=== PATIENT | male | born 1980 ===

== ENCOUNTER 2016-09-21 07:24 | Emergency (ER) | payer MEDICAID ==
[2016-09-21 07:31] VITALS: BMI 23.6
[2016-09-21 07:32] VITALS: TEMP 98.6
--- NOTE | 2016-09-21 08:31 | C.PDOC ---
History Of Present Illness 36 y/o male presents to ED with complaints of toothache, L Flank Pain and vomiting for x3 days. Patient states vomiting first started with "black specs but went away". Patient states Hx of Ulcers. Patient reports several month history of headaches which is associated with black outs. Denies blood in stool , fever, numbness, weakness, or any other complaints at this time. Time Seen by Provider: 09/21/16 07:55 Chief Complaint (Nursing): GI Problem History Per: Patient History/Exam Limitations: no limitations Onset/Duration Of Symptoms: Days Current Symptoms Are (Timing): Still Present Associated Symptoms: Vomiting. denies: Fever, Diarrhea Past Medical History Reviewed: Historical Data, Nursing Documentation, Vital Signs Vital Signs: Last Vital Signs Temp 98.6 F 09/21/16 07:31 Pulse 60 09/21/16 11:18 Resp 97 H 09/21/16 11:18 BP 125/81 09/21/16 11:18 Pulse Ox 16 L 09/21/16 11:18 - Medical History PMH: No Chronic Diseases, Gastrointestinal Ulcer Family History: States: No Known Family Hx - Social History Hx Alcohol Use: No Hx Substance Use: No - Immunization History Hx Tetanus Toxoid Vaccination: Yes Hx Influenza Vaccination: No Hx Pneumococcal Vaccination: No Review Of Systems Except As Marked, All Systems Reviewed And Found Negative. ([facility] was [facility] from [facility] on 08/04/16) Constitutional: Negative for: Fever, Chills Cardiovascular: Negative for: Chest Pain Respiratory: Negative for: Shortness of Breath Gastrointestinal: Positive for: Vomiting. Negative for: Hematochezia Neurological: Negative for: Weakness, Numbness Physical Exam - Physical Exam Appears: Non-toxic, No Acute Distress Skin: Normal Color, Warm, No Rash Head: Atraumatic, Normacephalic Eye(s): bilateral: Normal Inspection Oral Mucosa: Moist Teeth: Other (poor dentition) Gingiva: Tender, Abscess (Left lower) Throat: No Erythema, No Exudate Neck: Normal ROM, Supple Chest: Symmetrical, No Tenderness Cardiovascular: Rhythm Regular, No Friction Rub, No Murmur Respiratory: No Rales, No Rhonchi, No Wheezing Gastrointestinal/Abdominal: Soft, No Tenderness, No Guarding, No Rebound Back: Normal Inspection, CVA Tenderness (left sided) Extremity: Normal ROM, No Tenderness, No Swelling Neurological/Psych: Oriented x3, Normal Speech, Normal Cognition, Normal Motor Gait: Steady ED Course And Treatment - Laboratory Results Result Diagrams: 09/21/16 03:47 09/21/16 03:47 O2 Sat by Pulse Oximetry: 97 (on RA) Pulse Ox Interpretation: Normal - CT Scan/US Head CT Other Rad Studies (CT/US): Interpreted By Me CT/US Interpretation: unremarkable Disposition - Disposition Referrals: [facility] [Outside] [facility] [Outside] Disposition: HOME/ ROUTINE Disposition Time: 11:11 Condition: GOOD Additional Instructions: Follow up with the medical doctor/clinic within 1-2 days. Return if worsened. Prescriptions: Amoxicillin 500 mg PO TID #30 tab Famotidine [Pepcid] 20 mg PO BID #20 tab traMADol/Acetaminophen [Ultracet 325 MG-37.5 MG] 1 tab PO Q8 PRN #15 tab PRN Reason: Pain Instructions: Acute Abdominal Pain (ED), Kidney Cyst (ED) - Clinical Impression Clinical Impression: Gastritis, Headache, Dental abscess, Renal cyst - PA / CLIENT RENEWAL SPECIALIST / Resident Statement MD/DO has reviewed & agrees with the documentation as recorded. - Scribe Statement The provider has reviewed the documentation as recorded by the Chinedu Mahmood All medical record entries made by the Leonardiblincoln were at my direction and personally dictated by me. I have reviewed the chart and agree that the record accurately reflects my personal performance of the history, physical exam, medical decision making, and the department course for this patient. I have also personally directed, reviewed, and agree with the discharge instructions and disposition.
[2016-09-21 09:06] LABS: BASO % 0.5 % (0.0-2.0); EOS # 0.2 K/uL (0.0-0.7); EOS % 3.4 % (0.0-4.0); HEMATOCRIT 39.7 % (35.0-51.0); LYMPH # 2.5 K/uL (1.0-4.3); LYMPH % 35.9 % (20.0-40.0); MEAN CELL VOLUME 88.3 fL (80.0-94.0); MEAN CORPUSCULAR HEMOGLOBIN 28.9 pg (27.0-31.0); MEAN CORPUSCULAR HGB CONC 32.8 g/dL (33.0-37.0); MEAN PLATELET VOLUME 10.6 fL (7.2-11.7); MONO # 0.8 K/uL (0.0-0.8); MONO % 10.7 % (0.0-10.0); RED CELL DISTRIBUTION WIDTH 12.7 % (11.5-14.5)
[2016-09-21 09:17] LABS: CHLORIDE 101 mmol/L (98-107); SODIUM 137 mmol/L (132-148)
[2016-09-21 09:18] LABS: POTASSIUM 3.8 mmol/L (3.6-5.2)
[2016-09-21 09:20] LABS: ALB/GLOB RATIO 1.1 (1.0-2.1); ALKALINE PHOSPHATASE 96 U/L (38-126); AST/SGOT 37 U/L (17-59); BILIRUBIN,TOTAL 0.6 mg/dL (0.2-1.3); BLOOD UREA NITROGEN 13 mg/dL (9-20); CARBON DIOXIDE 26 mmol/L (22-30); GFR AFRICAN-AMERICAN > 60; GLUCOSE,RANDOM 135 mg/dL (75-110); TOTAL PROTEIN 6.9 g/dL (6.3-8.3)
[2016-09-21 09:21] LABS: ALT/SGPT 48 U/L (21-72); CALCIUM 8.3 mg/dl (8.6-10.4)
--- NOTE | 2016-09-21 09:58 | RAD ---
PROCEDURE: CHEST RADIOGRAPH, 1 VIEW. Portable study 09:40. HISTORY: epigastric pain COMPARISON: None available. FINDINGS: LUNGS: Clear. PLEURA: No pneumothorax or pleural fluid seen. CARDIOVASCULAR: Normal. OSSEOUS STRUCTURES: No significant abnormalities. VISUALIZED UPPER ABDOMEN: Normal. OTHER FINDINGS: None. IMPRESSION: No active disease.
--- NOTE | 2016-09-21 10:10 | CT ---
PROCEDURE: CT HEAD WITHOUT CONTRAST. HISTORY: headaches,? syncope COMPARISON: None available. TECHNIQUE: Axial computed tomography images were obtained through the head/brain without intravenous contrast. Radiation dose: Total exam DLP = 871 mGy-cm. This CT exam was performed using one or more of the following dose reduction techniques: Automated exposure control, adjustment of the mA and/or kV according to patient size, and/or use of iterative reconstruction technique. FINDINGS: HEMORRHAGE: No intracranial hemorrhage. BRAIN: No mass effect or edema. No atrophy or chronic microvascular ischemic changes. VENTRICLES: Unremarkable. No hydrocephalus. CALVARIUM: Unremarkable. PARANASAL SINUSES: Unremarkable as visualized. No significant inflammatory changes. MASTOID AIR CELLS: Unremarkable as visualized. No inflammatory changes. OTHER FINDINGS: None. IMPRESSION: No acute intracranial abnormality. If focal neurologic deficit persists, consider MRI.
--- NOTE | 2016-09-21 10:26 | CT ---
PROCEDURE: CT Abdomen and Pelvis without Oral or IV contrast. HISTORY: L flank pain, ? stone COMPARISON: None available. TECHNIQUE: Contiguous axial images of the abdomen and pelvis. No oral or IV contrast administered. Coronal and Sagittal reformats generated and reviewed. Radiation dose: Total exam DLP = 470.21 mGy-cm. This CT exam was performed using one or more of the following dose reduction techniques: Automated exposure control, adjustment of the mA and/or kV according to patient size, and/or use of iterative reconstruction technique. FINDINGS: There is limited evaluation of the solid organs without the administration of IV contrast. LOWER THORAX: No visible consolidation, pleural effusion, or pneumothorax. LIVER: Unremarkable unenhanced appearance. GALLBLADDER AND BILE DUCTS: Unremarkable unenhanced appearance. PANCREAS: Unremarkable unenhanced appearance. SPLEEN: Unremarkable unenhanced appearance. ADRENALS: Unremarkable unenhanced appearance. KIDNEYS AND URETERS: Nonobstructing bilateral renal calculi. Right lower pole calcification appears related to hypodense 13 mm lower pole lesion. Faintly visualized 13 mm right upper pole and 11 mm left upper pole renal hypodensities, possibly cysts. No hydronephrosis or obstructing renal calculus. BLADDER: The urinary bladder appears unremarkable. REPRODUCTIVE: Coarse calcifications within the prostate. Prostate size appears within normal limits. APPENDIX: The appendix appears within normal limits of caliber. No secondary signs of acute appendicitis. BOWEL: The stomach is nondistended. Lack of oral contrast limits evaluation for bowel pathology. The bowel loops appear within normal limits of caliber without evidence of intestinal obstruction. Mild to moderate constipation. PERITONEUM: No significant free fluid. No definite free air. LYMPH NODES: No bulky lymphadenopathy identified. VASCULATURE: No aortic aneurysm. BONES: No acute osseous abnormality is detected. OTHER FINDINGS: None. IMPRESSION: Nonobstructing bilateral renal calculi. Right lower pole calcification appears related to hypodense 13 mm lower pole lesion. Faintly visualized 13 mm right upper pole and 11 mm left upper pole renal hypodensities, possibly cysts. No hydronephrosis or obstructing renal calculus. Mild to moderate constipation.
[2016-09-21 11:18] VITALS: BP 125/81; PULSE 60; RESP 97
[2016-09-22 22:27] VITALS: O2SAT 97
== END 2016-09-21 11:31 | disposition home or self-care (01) ==
LOC: C.ER 07:24
DX: K29.70 Gastritis, unspecified, without bleeding (principal); K04.7 Periapical abscess without sinus; R51 Headache; N28.1 Cyst of kidney, acquired
CPT/HCPCS: 70450; 71010; 74176; 80053; 83690; 85025; 96374; 96375; 99285; C9113; J1885; J2405

== ENCOUNTER 2017-01-06 04:32 | Emergency (ER) | payer MEDICAID, OTHER ==
[2017-01-06 04:32] VITALS: BMI 23.6
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
[2017-01-06 05:21] VITALS: RESP 16; TEMP 99.5; O2SAT 98
[2017-01-06 06:41] LABS: BASO # 0.1 K/uL (0.0-0.2); BASO % 0.5 % (0.0-2.0); EOS # 0.1 K/uL (0.0-0.7); HEMATOCRIT 42.5 % (35.0-51.0); LYMPH # 3.5 K/uL (1.0-4.3); LYMPH % 28.9 % (20.0-40.0); MEAN CELL VOLUME 87.9 fL (80.0-94.0); MEAN CORPUSCULAR HGB CONC 32.9 g/dL (33.0-37.0); MEAN PLATELET VOLUME 9.2 fL (7.2-11.7); MONO # 1.2 K/uL (0.0-0.8); MONO % 9.5 % (0.0-10.0); RED CELL DISTRIBUTION WIDTH 12.3 % (11.5-14.5); WHITE BLOOD COUNT 12.2 K/uL (4.8-10.8)
[2017-01-06 06:54] LABS: ALB/GLOB RATIO 1.3 (1.0-2.1); ALCOHOL SERUM < 10 mg/dl (0-10); ALKALINE PHOSPHATASE 93 U/L (38-126); ALT/SGPT 68 U/L (21-72); AST/SGOT 48 U/L (17-59); BILIRUBIN,TOTAL 0.7 mg/dL (0.2-1.3); BLOOD UREA NITROGEN 15 mg/dL (9-20); CALCIUM 9.2 mg/dl (8.6-10.4); CARBON DIOXIDE 25 mmol/L (22-30); CHLORIDE 100 mmol/L (98-107); GFR AFRICAN-AMERICAN > 60; GLUCOSE,RANDOM 75 mg/dL (75-110); SODIUM 140 mmol/L (132-148); TOTAL PROTEIN 7.4 g/dL (6.3-8.3)
[2017-01-06 06:59] LABS: RBC URINE 1 /hpf (0-3); URINE BACTERIA RARE (<OCC); URINE BILIRUBIN NEGATIVE (NEGATIVE); URINE BLOOD NEGATIVE (NEGATIVE); URINE COLOR Yellow (YELLOW); URINE GLUCOSE (UA) NORMAL (Normal); URINE KETONE NEGATIVE (NEGATIVE); URINE LEUKOCYTE ESTERASE NEG Leu/uL (Negative); URINE PROTEIN NEGATIVE (NEGATIVE); WBC URINE 3 /hpf (0-5)
[2017-01-06 08:10] VITALS: BP 108/73; PULSE 71
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
== END 2017-01-06 10:00 | disposition home or self-care (01) ==
LOC: C.ER 04:32
DX: S40.011A Contusion of right shoulder, initial encounter (principal); Y08.89XA Assault by other specified means, initial encounter; F32.9 Major depressive disorder, single episode, unspecified
CPT/HCPCS: 36415; 73030; 80053; 80320; 80324; 80345; 80346; 80349; 80353; 80358; 80361; 81001; 83992; 85025; 96372; 99285; J1885

== ENCOUNTER 2017-11-24 09:49 | Emergency (ER) | payer OTHER ==
[2017-11-24 10:10] VITALS: BMI 23.5
--- NOTE | 2017-11-24 11:27 | C.PDOC ---
History Of Present Illness 37-year-old male, PMhx includes polysubstance abuse, presents to the emergency department, brought in by ambulance for detox from Heroin and alcohol. Patient is requesting ambient to sleep during my evaluation. No other complaints at this time. Time Seen by Provider: 11/24/17 10:22 Chief Complaint (Nursing): Substance Abuse History Per: Patient History/Exam Limitations: no limitations Current Symptoms Are (Timing): Still Present Past Medical History Reviewed: Historical Data, Nursing Documentation, Vital Signs Vital Signs: Last Vital Signs Temp 98.2 F 11/24/17 12:29 Pulse 70 11/24/17 12:29 Resp 12 11/24/17 12:29 BP 110/71 11/24/17 12:29 Pulse Ox 98 11/24/17 13:12 - Medical History PMH: Anxiety, Depression, Gastrointestinal Ulcer, Chronic Kidney Disease Family History: States: No Known Family Hx - Social History Hx Alcohol Use: Yes Hx Substance Use: Yes (heroin) - Immunization History Hx Tetanus Toxoid Vaccination: Yes Hx Influenza Vaccination: No Hx Pneumococcal Vaccination: No Review Of Systems Constitutional: Negative for: Fever, Chills Cardiovascular: Negative for: Chest Pain Respiratory: Negative for: Shortness of Breath Gastrointestinal: Negative for: Vomiting Musculoskeletal: Negative for: Neck Pain, Back Pain Neurological: Negative for: Weakness, Numbness, Headache, Dizziness Physical Exam - Physical Exam Appears: Non-toxic, No Acute Distress, Other (drowsy, arousable) Skin: Warm, Dry, No Rash Head: Atraumatic Eye(s): bilateral: Normal Inspection Nose: Normal Oral Mucosa: Moist Lips: Normal Appearing Neck: Normal ROM Cardiovascular: Rhythm Regular, No Murmur Respiratory: Normal Breath Sounds, No Decreased Breath Sounds, No Accessory Muscle Use Gastrointestinal/Abdominal: Soft, No Tenderness Extremity: Normal ROM, No Deformity, No Swelling Neurological/Psych: Oriented x3, Normal Speech ED Course And Treatment O2 Sat by Pulse Oximetry: 98 (RA) Pulse Ox Interpretation: Normal Disposition Counseled Patient/Family Regarding: Diagnosis - Disposition Disposition: HOME/ ROUTINE Disposition Time: 11:26 Condition: STABLE Forms: [facility] (Slovak) - Clinical Impression Clinical Impression: Insomnia - Scribe Statement The provider has reviewed the documentation as recorded by the Scribe (Nicole Johnson) All medical record entries made by the Scribe were at my direction and personally dictated by me. I have reviewed the chart and agree that the record accurately reflects my personal performance of the history, physical exam, medical decision making, and the department course for this patient. I have also personally directed, reviewed, and agree with the discharge instructions and disposition.
[2017-11-24 12:30] VITALS: BP 110/71; PULSE 70; RESP 12; TEMP 98.2
[2017-11-24 12:53] VITALS: O2SAT 98
== END 2017-11-24 12:40 | disposition home or self-care (01) ==
LOC: C.ER 09:49
DX: G47.00 Insomnia, unspecified (principal)

== ENCOUNTER 2018-05-28 17:14 | Inpatient (IN) | payer MEDICAID, OTHER ==
[2018-05-28 17:36] VITALS: BMI 21.4
[2018-05-28 19:48] LABS: BASO % 0.6 % (0.0-2.0); EOS # 0.2 K/uL (0.0-0.7); EOS % 4.7 % (0.0-4.0); HEMOGLOBIN 12.7 g/dL (12.0-18.0); LYMPH # 1.9 K/uL (1.0-4.3); LYMPH % 43.8 % (20.0-40.0); MEAN CELL VOLUME 87.6 fL (80.0-94.0); MEAN CORPUSCULAR HEMOGLOBIN 28.4 pg (27.0-31.0); MEAN CORPUSCULAR HGB CONC 32.4 g/dL (33.0-37.0); MEAN PLATELET VOLUME 9.8 fL (7.2-11.7); MONO # 0.6 K/uL (0.0-0.8); MONO % 12.6 % (0.0-10.0); NEUT # 1.7 K/uL (1.8-7.0); NEUT % 38.3 % (50.0-75.0); RBC 4.47 Mil/uL (4.40-5.90); RED CELL DISTRIBUTION WIDTH 12.5 % (11.5-14.5); WHITE BLOOD COUNT 4.4 K/uL (4.8-10.8)
[2018-05-28 19:54] LABS: SQUAMOUS EPITHIAL < 1 /hpf (0-5); URINE AMORPHOUS SEDIMENT MODERATE /ul (<OCC); URINE BILIRUBIN NEGATIVE (NEGATIVE); URINE BLOOD NEGATIVE (NEGATIVE); URINE CLARITY Hazy (Clear); URINE COLOR Yellow (YELLOW); URINE GLUCOSE (UA) NORMAL (Normal); URINE LEUKOCYTE ESTERASE NEG Leu/uL (Negative); URINE PROTEIN 1+ mg/dL (NEGATIVE)
[2018-05-28 20:09] LABS: ALB/GLOB RATIO 1.4 (1.0-2.1); ALBUMIN 4.4 g/dL (3.5-5.0); ALT/SGPT 44 U/L (21-72); AST/SGOT 65 U/L (17-59); BLOOD UREA NITROGEN 14 mg/dL (9-20); CALCIUM 9.2 mg/dl (8.6-10.4); GFR NON-AFRICAN AMERICAN > 60
[2018-05-28 20:25] LABS: BARBITURATES, UR NEGATIVE (NEGATIVE); BENZODIAZEPINES, UR NEGATIVE (NEGATIVE); PHENCYCLIDINE, UR NEGATIVE (NEGATIVE)
[2018-05-28 20:33] LABS: OPIATES, UR POSITIVE (NEGATIVE)
--- NOTE | 2018-05-28 21:03 | C.PDOC ---
History Of Present Illness 37 year old male presents to the ED requesting detoxification from heroin and cocaine. Reports he snorts 5 bags of heroin and 5 vials of cocaine daily. Denies any SI/HI, auditory or visual hallucinations, shortness of breath, chest pain, or any other symptoms. Time Seen by Provider: 05/28/18 18:27 Chief Complaint (Nursing): Psychiatric Evaluation History Per: Patient History/Exam Limitations: no limitations Onset/Duration Of Symptoms: Days Current Symptoms Are (Timing): Gone Suicide/Self Injury Attempted (Context): None Modifying Factor(s): Cocaine, Other (Heroin) Associated Symptoms: denies: Suicidal Thoughts, Suicidal Plan Past Medical History Reviewed: Historical Data, Nursing Documentation, Vital Signs Vital Signs: Last Vital Signs Temp 98.4 F 05/28/18 19:15 Pulse 72 05/28/18 19:15 Resp 18 05/28/18 19:15 BP 125/79 05/28/18 19:15 Pulse Ox 99 05/28/18 19:15 - Medical History PMH: Anxiety, Depression, Gastrointestinal Ulcer, Personality Disorder, Post Traumatic Stress Disorder, Chronic Kidney Disease Denies: Diabetes (Patient denied.), Hepatitis (Patient denied.), HIV (Patient denied.), HTN (Patient denied.), Seizures (Patient denied.), Sexually Transmitted Disease (Patient denied.) Other Surgeries: Hx of surgeries Family History: States: No Known Family Hx - Social History Hx Alcohol Use: Yes Hx Substance Use: Yes (heroin) - Immunization History Hx Tetanus Toxoid Vaccination: Yes Hx Influenza Vaccination: Yes Hx Pneumococcal Vaccination: No Review Of Systems Except As Marked, All Systems Reviewed And Found Negative. Cardiovascular: Negative for: Chest Pain Respiratory: Negative for: Shortness of Breath Psych: Positive for: Other (auditory or visual hallucinations). Negative for: Suicidal ideation Physical Exam - Physical Exam Appears: Non-toxic, No Acute Distress Skin: Warm, Dry, No Rash Head: Normacephalic Eye(s): bilateral: Normal Inspection, PERRL, EOMI Nose: Normal Oral Mucosa: Moist Neck: Supple Chest: Symmetrical Cardiovascular: Rhythm Regular Respiratory: Normal Breath Sounds, No Rales, No Rhonchi, No Wheezing Neurological/Psych: Oriented x3, Normal Speech Gait: Steady ED Course And Treatment - Laboratory Results Result Diagrams: 05/28/18 19:41 05/28/18 19:41 Lab Results: Total Bilirubin 0.5 mg/dL (0.2-1.3) 05/28/18 19:41 AST 65 U/L (17-59) H D 05/28/18 19:41 ALT 44 U/L (21-72) 05/28/18 19:41 Alkaline Phosphatase 137 U/L (38-126) H D 05/28/18 19:41 Total Protein 7.5 g/dL (6.3-8.3) 05/28/18 19:41 Albumin 4.4 g/dL (3.5-5.0) 05/28/18 19:41 Globulin 3.1 gm/dL (2.2-3.9) 05/28/18 19:41 Albumin/Globulin Ratio 1.4 (1.0-2.1) 05/28/18 19:41 Urine Color Yellow (YELLOW) 05/28/18 19:41 Urine Clarity Hazy (Clear) 05/28/18 19:41 Urine pH 7.0 (5.0-8.0) 05/28/18 19:41 Ur Specific Brinkley 1.023 (1.003-1.030) 05/28/18 19:41 Urine Protein 1+ mg/dL (NEGATIVE) H 05/28/18 19:41 Urine Glucose (UA) Normal mg/dL (Normal) 05/28/18 19:41 Urine Ketones Negative mg/dL (NEGATIVE) 05/28/18 19:41 Urine Blood Negative (NEGATIVE) 05/28/18 19:41 Urine Nitrate Negative (NEGATIVE) 05/28/18 19:41 Urine Bilirubin Negative (NEGATIVE) 05/28/18 19:41 Urine Urobilinogen 4.0 mg/dL (0.2-1.0) 05/28/18 19:41 Ur Leukocyte Esterase Neg Kosta/uL (Negative) 05/28/18 19:41 Urine WBC (Auto) 5 /hpf (0-5) 05/28/18 19:41 Urine RBC (Auto) 1 /hpf (0-3) 05/28/18 19:41 Ur Squamous Epith Cells < 1 /hpf (0-5) 05/28/18 19:41 Amorphous Sediment Moderate /ul (<OCC) H 05/28/18 19:41 Lab Interpretation: Abnormal (tox + cocaine, opiates, THC) O2 Sat by Pulse Oximetry: 99 (RA) Pulse Ox Interpretation: Normal Reevaluation Time: 21:03 Reassessment Condition: Unchanged - Physician Consult Information Outcome Of Conversation: 2100: d/w Crisis, ok to detox Medical Decision Making Medical Decision Making: Plan - Bloodwork - UA - Admit Disposition Doctor Will See Patient In The: Hospital Counseled Patient/Family Regarding: Studies Performed, Diagnosis - Disposition Disposition: HOSPITALIZED Disposition Time: 21:04 Condition: GOOD - Clinical Impression Clinical Impression: Polysubstance (including opioids) dependence with physiol dependence - Scribe Statement The provider has reviewed the documentation as recorded by the Scribe Loreto Jamison All medical record entries made by the Scribe were at my direction and personally dictated by me. I have reviewed the chart and agree that the record accurately reflects my personal performance of the history, physical exam, medical decision making, and the department course for this patient. I have also personally directed, reviewed, and agree with the discharge instructions and disposition.
--- NOTE | 2018-05-28 22:08 | PCM.BM ---
<ManavEdna - Last Filed: 05/28/18 22:07> Treatment Plan Problems - Problems identified on initial assessmt Denial Date Initiated: 05/28/18 Time Initiated: 22:07 Assessment reference: NA Status: Active Defensive Coping Date Initiated: 05/28/18 Time Initiated: 22:07 Assessment reference: NA Status: Active Low Motivation to Change Date Initiated: 05/28/18 Time Initiated: 22:08 Assessment reference: NA Status: Active Treatment assets and liabiliti Patient Assests: cooperative, ADL independent, negotiates basic needs, cognitively intact Patient Liabilities: substance abuse (cocaine, opiates, THC, ETOH) - Milieu Protocol Maintain good personal hygiene: daily Encourage regular showers, daily Remind patient to perform daily oral care, daily Assist patient to perform ADL's Conduct patient checks and document Observation sheet: Q15 minutes Maintain personal safety: every shift Educate patient to report safety concerns to staff, every shift Monitor environment for contraband/sharps Medication safety: Monitor for expected outcome, potential side effects: every shift, Assess barriers to learning: every shift, Assess readiness for medication education: every shift <Shanelle Haynes - Last Filed: 05/29/18 14:00> - Diagnosis (1) Opioid use disorder, severe, dependence Status: Acute Interventions: 05/29/18 14:00 * Assess 7x/week regarding severity of withdrawal * Educate regarding risks, benefits, side effects and alternatives of medications * Use Motivational Interviewing for abstinence * Use CBT for relapse prevention * Medication management for withdrawal symptoms * Encourage medication assisted treatment * <Janie Dillon - Last Filed: 06/01/18 13:11> Family Contact Family involvement: No known Family/SO - Goals for Treatment Patient goals for treatment: Complete detox and apply for long-term adult rehab program. Discharge/Continuing Care - Education Needs Education Needs: Patient Medication, Patient Diagnosis/Disease Process, Patient Coping Skills, Patient Anger Management skills, Patient Placement options, Patient Community resources - Discharge Discharge Criteria: Ability to care for self, No longer exhibiting s/s of withdrawal, Reduction of target symptoms Discharge to:: Substance Abuse Rehab - Treatment Team Participation Patient/Family/SO Statement: 06/01/18 13:11 "I wanna try to get into the [employer]." Discussed with Family/SO: No Was Patient/Family/SO present at Treatment Team Meeting: Yes
[2018-05-28] MEDS ORDERED: Aluminum Hydroxide/Magnesium Hydroxide Susp (30 mL) PO PRN (22:32)
--- NOTE | 2018-05-29 09:34 | PCM.PSYCH ---
Initial Psychiatric Evaluation - Initial Psychiatric Evaluation Type of Admission: Voluntary Legal Status: Capacity Chief Complaint (in patient's own words): "i just want to be clean" History of Present Illness and Precipitating Events: Patient is a 37 -year-old, male who is single, unemployed and on SSIs, and currently living with his mother in [place]. Patient originally lives in [place] with his sister. He has no children. He presents for heroin detox. Patient states that he was dropped off by a friend and decided to come to detox on his own volition because he wanted to be clean. He admits to using 5 bags of heroin, intranasally, daily. He has been using heroin since he was 25 years old with his longest sobriety being 2 years, from [id number], but relapsed after the of his father. Patient does not have a history of any ODs. Patient also reports snorting 5 bags of cocaine, daily. He has been using cocaine on and off for about 10 years. Patient reports drinking alcohol socially and denies having a history of DTs, seizures, or blackouts. This is his 2nd time in detox with a visit to [facility] detox 10 years ago. Patient denies ever going to rehab. He states that he has tried both methadone and suboxone from the street to quit and prefers methadone. Patient states that he is currently nauseous and very tired. Patient denies any suicidal or homicidal ideation, hallucinations, and paranoia. Past Psychiatric History: Depression, Anxiety, Bipolar. Inpatient psych [facility] stays 5 years ago for severe depression and anxiety Family Psych History: Substance abuse in family- mother: cocaine, sister- ETOH PMHx: Hep. C (as per chart) PSHx: ORIF for left ankle fracture Meds: Seroquel 300mg (patient is complaint) Allergies: trazodone Current Medications: Active Medications Generic Name Dose Route Start Last Admin Trade Name Freq PRN Reason Stop Dose Admin Al Hydrox/Mg Hydrox/Simethicone 30 ml 05/28/18 22:32 Maalox 30 Ml PO TID PRN Indigestion / Heartburn Clonidine HCl 0.1 mg 05/28/18 22:31 Catapres PO Q4 PRN COWS Score More or Equal to 5 Dicyclomine HCl 10 mg 05/28/18 22:32 Bentyl PO Q6 PRN Muscle spasm Gabapentin 400 mg 05/29/18 10:00 Neurontin PO TID NAYELI Hydroxyzine HCl 25 mg 05/28/18 21:51 05/28/18 21:57 Atarax PO 25 mg Q6 PRN Administration Insomnia Ibuprofen 600 mg 05/28/18 22:32 Motrin Tab PO Q6 PRN Pain, moderate (4-7) Loperamide HCl 2 mg 05/28/18 22:46 Imodium PO Q8 PRN Diarrhea Methadone HCl 15 mg 05/29/18 10:00 Methadone PO 06/01/18 09:59 Q24H NAYELI Taper Ondansetron HCl 4 mg 05/28/18 22:32 Zofran Tab PO Q8 PRN Nausea/Vomiting Past Psychiatric History - Past Psychiatric History Previous Treatment History: Intensive Outpatient Pertinent Medical Hx (Current Medical&Sleep Prob, Allergies): Allergies Allergy/AdvReac Type Severity Reaction Status Date / Time shellfish derived Allergy RASH Verified 05/28/18 17:36 trazodone Allergy Verified 05/28/18 17:36 Gabapentin 400 PO BID 05/28/18 Melatonin 05/28/18 Protonix 40 PO DAILY 05/28/18 Review of Systems - Psychiatric Psychiatric: Abnormal Sleep Pattern, Anhedonia, Anxiety, Behavioral Changes, Change in Appetite, Depression, Difficulty Concentrating, Irritability. absent: Hallucinations, Homicidal Ideation, Paranoia, Suicidal Ideation, Visual Hallucinations Mental Status Examination - Personal Presentation Personal Presentation: Looks stated age - Affect Affect: Broad - Motor Activity Motor Activity: Calm - Reliability in Providing Information Reliability in Providing Information: Good - Speech Speech: Disorganized - Mood Mood: Depressed, Anxious - Formal Thought Process Formal Thought Process: No Impairment - Obsessions/Compulsions Obsessions: No Compulsions: No - Cognitive Functions Orientation: Person, Place, Situation, Time Sensorium: Alert Attention/Concentration: Attentive Abstract Thinking: Marana Estimate of Intelligence: Average Judgement: Intact, as evidence by: Insight regarding need for hospitalization Memory: Recent intact, as evidence by: Ability to recall events of the day, Remote intact, as evidenced by: Abilit to recall sig. life events - Risk Risk: Withdrawal - Strength & Assets Inventory Strength & Assets Inventory: Family support, Cooperative - Limitations Limitations: Other DSM 5 DX - DSM 5 DSM 5 Diagnosis: Opioid withdrawal Opioid use disorder- severe Cocaine use disorder- severe MDD - chronic, severe SHERYL- severe - Recommended/Plan of Treatment Treatment Recommendations and Plan of Treatment: Taper with methadone Gabapentin for augmentation if needed Remeron for insomnia and depressive symptoms As needed medications All risks, benefits and alternatives of the meds discussed, and the pt agreed and understood. Attend groups and activities Supportive therapy and psychoeducation [place] for abstinence CBT for relapse prevention Encourage MAT Refer to rehab or IOP, and self-help groups Teach healthy lifestyle methods, i.e. diet, exercise, meditation Smoking cessation with [place] Nicotine patch if needed 34 min Projected ELOS: 4-5 days Prognosis: good with treatment
--- NOTE | 2018-05-30 11:34 | PCM.PYCHPN ---
Psychiatric Progress Note - Psychiatric Progress Note Patient seen today, length of contact: 17 min Patient Chief Complaint: "I'm nauseas" Problems Identified/Issues Discussed: The pt is seen, chart reviewed, case discussed with staff. The pt is compliant with medications and reports no side-effects. Symptoms are improving but needs more time to stabilize. Pt attends groups and activities. Support given, psycho-education provided. After care discussed. Medication Change: Yes (detox changes daily) Medical Record Reviewed: Yes Mental Status Examination - Cognitive Function Orientation: Person, Place, Situation, Time Memory: Intact Attention: Poor Concentration: Poor Association: WNL Fund of Knowledge: WNL - Mood Mood: Depressed, Anxious - Affect Affect: Broad - Speech Speech: Appropriate - Formal Thought Process Formal Thought Process: No Impairment - Suicidal Ideation Suicidal Ideation: No - Homicidal Ideation Homicidal Ideation: No Goal/Treatment Plan - Goal/Treatment Plan Need for Continued Stay: Discharge may exacerbated symptoms, Severe functional impairment Progress Toward Problem(s) and Goals/Treatment Plan: Taper with methadone Gabapentin for augmentation if needed Remeron for insomnia and depressive symptoms As needed medications All risks, benefits and alternatives of the meds discussed, and the pt agreed and understood. Attend groups and activities Supportive therapy and psychoeducation [place] for abstinence CBT for relapse prevention Encourage MAT Refer to rehab or IOP, and self-help groups Teach healthy lifestyle methods, i.e. diet, exercise, meditation Smoking cessation with [place] Nicotine patch if needed
--- NOTE | 2018-05-31 15:41 | PCM.PYCHPN ---
Psychiatric Progress Note - Psychiatric Progress Note Patient seen today, length of contact: 16 min Patient Chief Complaint: "I'm so so" Problems Identified/Issues Discussed: The pt is seen, chart reviewed, case discussed with staff. Support and psychoeducation given, CBT and [place] used briefly No new symptoms reported, improving slowly and needs more time No SEs from medications, risks discussed. After care discussed Medication Change: Yes (detox changes daily) Medical Record Reviewed: Yes Mental Status Examination - Cognitive Function Orientation: Person, Place, Situation, Time Memory: Intact Attention: Poor Concentration: Poor Association: WNL Fund of Knowledge: WNL - Mood Mood: Depressed, Anxious - Affect Affect: Broad - Speech Speech: Appropriate - Formal Thought Process Formal Thought Process: No Impairment - Suicidal Ideation Suicidal Ideation: No - Homicidal Ideation Homicidal Ideation: No Goal/Treatment Plan - Goal/Treatment Plan Need for Continued Stay: Discharge may exacerbated symptoms, Severe functional impairment Progress Toward Problem(s) and Goals/Treatment Plan: Taper with methadone Gabapentin for augmentation if needed Remeron for insomnia and depressive symptoms As needed medications All risks, benefits and alternatives of the meds discussed, and the pt agreed and understood. Attend groups and activities Supportive therapy and psychoeducation [place] for abstinence CBT for relapse prevention Encourage MAT Refer to rehab or IOP, and self-help groups Teach healthy lifestyle methods, i.e. diet, exercise, meditation Smoking cessation with [place] Nicotine patch if needed Estimated Date of D/C: 06/02/18
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
--- NOTE | 2018-06-01 16:33 | RAD ---
Date of service: 06/01/2018 HISTORY: rehab placement COMPARISON: Portable chest 09/21/2016. TECHNIQUE: Chest PA and lateral FINDINGS: LUNGS: No active pulmonary disease. PLEURA: No significant pleural effusion identified. No pneumothorax apparent. CARDIOVASCULAR: No aortic atherosclerotic calcification present. Normal cardiac size. No pulmonary vascular congestion. OSSEOUS STRUCTURES: No significant abnormalities. VISUALIZED UPPER ABDOMEN: Normal. OTHER FINDINGS: None. IMPRESSION: No interval acute cardiopulmonary disease appreciated.
--- NOTE | 2018-06-02 12:03 | PCM.PYCHPN ---
Psychiatric Progress Note - Psychiatric Progress Note Patient seen today, length of contact: 15 min Patient Chief Complaint: "I'm so so" Problems Identified/Issues Discussed: The pt is seen again, chart reviewed, and case is discussed with the team. The pt denies any side-effects from meds. Attends activities and groups, brief individual therapy provided Not ready for discharge due to ongoing symptoms and high relapse risk. After care discussed again. Now, he wants to go to a rehab. Medication Change: Yes (detox changes daily) Medical Record Reviewed: Yes Mental Status Examination - Cognitive Function Orientation: Person, Place, Situation, Time Memory: Intact Attention: Poor Concentration: Poor Association: WNL Fund of Knowledge: WNL - Mood Mood: Depressed, Anxious - Affect Affect: Broad - Speech Speech: Appropriate - Formal Thought Process Formal Thought Process: No Impairment - Suicidal Ideation Suicidal Ideation: No - Homicidal Ideation Homicidal Ideation: No Goal/Treatment Plan - Goal/Treatment Plan Need for Continued Stay: Discharge may exacerbated symptoms, Severe functional impairment Progress Toward Problem(s) and Goals/Treatment Plan: Taper with methadone Gabapentin for augmentation if needed Remeron for insomnia and depressive symptoms As needed medications All risks, benefits and alternatives of the meds discussed, and the pt agreed and understood. Attend groups and activities Supportive therapy and psychoeducation [place] for abstinence CBT for relapse prevention Encourage MAT Refer to rehab or IOP, and self-help groups Teach healthy lifestyle methods, i.e. diet, exercise, meditation Smoking cessation with [place] Nicotine patch if needed Estimated Date of D/C: 06/03/18
[2018-06-03 09:13] VITALS: BP 103/66; PULSE 71; RESP 18; TEMP 97.6; O2SAT 98
--- NOTE | 2018-06-03 09:16 | PCM.PYCHDC ---
Mental Status Examination - Mental Status Examination Orientation: Person Discharge Summary - Discharge Note Consultations:: List each consultation separately and include: 1. Reason for request. 2. Findings. 3. Follow-up Summary of Hospital Course include:: 1. Description of specific treatment plan utilized for patients during their course of treatmen. 2. Summarize the time- course for resolution of acute symptoms and/or regressed behaviors. 3. Describe issues identified and worked on during hospitalization. 4. Describe medication utilized. 5. Describe medical problems identified and treated. 6. Reassessment of suicide risk Summary of Hospital Course: Patient is a 37 -year-old, male who is single, unemployed and on SSIs, and currently living with his mother in [place]. Patient originally lives in [place] with his sister. He has no children. He presents for heroin detox. Patient states that he was dropped off by a friend and decided to come to detox on his own volition because he wanted to be clean. He admits to using 5 bags of heroin, intranasally, daily. He has been using heroin since he was 25 years old with his longest sobriety being 2 years, from [id number], but relapsed after the of his father. Patient does not have a history of any ODs. Patient also reports snorting 5 bags of cocaine, daily. He has been using cocaine on and off for about 10 years. Patient reports drinking alcohol socially and denies having a history of DTs, seizures, or blackouts. This is his 2nd time in detox with a visit to [facility] detox 10 years ago. Patient denies ever going to rehab. He states that he has tried both methadone and suboxone from the street to quit and prefers methadone. Patient states that he is currently nauseous and very tired. Patient denies any suicidal or homicidal ideation, hallucinations, and paranoia. Past Psychiatric History: Depression, Anxiety, Bipolar. Inpatient psych [facility] stays 5 years ago for severe depression and anxiety Family Psych History: Substance abuse in family- mother: cocaine, sister- ETOH PMHx: Hep. C (as per chart) PSHx: ORIF for left ankle fracture Meds: Seroquel 300mg (patient is complaint) Allergies: trazodone He now wants to go to [facility] but he needs to stay outside 2 days. He will stay with his uncle. He was kept one extra day already, b/c of ongoing sxs and depression. - Diagnosis (1) Opioid use disorder, severe, dependence Current Visit: Yes Status: Acute - Final Diagnosis (DSM 5) Condition upon Discharge: GOOD Disposition: HOME/ ROUTINE Follow-up Treatment Plan: Taper with methadone Gabapentin for augmentation if needed Remeron for insomnia and depressive symptoms As needed medications All risks, benefits and alternatives of the meds discussed, and the pt agreed and understood. Attend groups and activities Supportive therapy and psychoeducation [place] for abstinence CBT for relapse prevention Encourage MAT Refer to rehab or IOP, and self-help groups Teach healthy lifestyle methods, i.e. diet, exercise, meditation Smoking cessation with [place] Nicotine patch if needed Prescriptions/Medication Reconciliation: Escitalopram [Lexapro] 10 mg PO DAILY #30 tab Gabapentin [Neurontin] 400 mg PO BID #60 cap Mirtazapine [Remeron] 15 mg PO HS #30 tab QUEtiapine [Seroquel] 100 mg PO HS PRN #30 tab PRN Reason: Insomnia
== END 2018-06-03 10:15 | disposition home or self-care (01) | DRG 773 ==
LOC: C.ER 17:14 → C.7D 21:04
PROC: GZ56ZZZ Individual Psychotherapy, Supportive (ICD-10-PCS; principal; 2018-05-28)
DX: F11.23 Opioid dependence with withdrawal (principal); F31.9 Bipolar disorder, unspecified; F14.10 Cocaine abuse, uncomplicated; G47.00 Insomnia, unspecified; F60.9 Personality disorder, unspecified; N18.9 Chronic kidney disease, unspecified; F43.10 Post-traumatic stress disorder, unspecified

== ENCOUNTER 2018-07-05 11:42 | Inpatient (IN) | payer OTHER ==
[2018-07-05 11:42] VITALS: BMI 21.4
--- NOTE | 2018-07-05 12:00 | C.PDOC ---
History Of Present Illness 37 y/o male with a PMHx of bipolar disorder, heroin abuse and cocaine abuse, presents to the ED requesting detox and evaluation for suicidal ideation. He notes that yesterday he tried overdosing on heroin. He injected to the left AC fossa. Denies any rash or pain to the area. Patient denies ingesting medications or any other self-harming behavior. Otherwise he has no physical complaints. He denies any fevers, chills, or GI or complaints. Time Seen by Provider: 07/05/18 11:58 Chief Complaint (Nursing): Substance Abuse History Per: Patient History/Exam Limitations: no limitations Onset/Duration Of Symptoms: Days Current Symptoms Are (Timing): Still Present Suicide/Self Injury Attempted (Context): Other (Heroin overdose) Modifying Factor(s): Other (Heroin) Associated Symptoms: Suicidal Thoughts, Suicidal Plan Involuntary Hold By: None Past Medical History Reviewed: Historical Data, Nursing Documentation, Vital Signs Vital Signs: Last Vital Signs Temp 97.9 F 07/05/18 11:45 Pulse 105 H 07/05/18 11:45 Resp 17 07/05/18 11:45 BP 136/86 07/05/18 11:45 Pulse Ox 99 07/05/18 11:45 - Medical History PMH: Anxiety, Depression, Gastrointestinal Ulcer, Kidney Stones, Personality Disorder, Post Traumatic Stress Disorder, Chronic Kidney Disease Denies: Diabetes (Patient denied.), Hepatitis (Patient denied.), HIV (Patient denied.), HTN (Patient denied.), Seizures (Patient denied.), Sexually Transmitted Disease (Patient denied.) - [facility] Procedures INDIVIDUAL PSYCHOTHERAPY, SUPPORTIVE (05/28/18) Family History: States: Unknown Family Hx - Social History Hx Tobacco Use: Yes Hx Alcohol Use: No Hx Substance Use: Yes (IV Heroin) - Immunization History Hx Tetanus Toxoid Vaccination: Yes Hx Influenza Vaccination: Yes Hx Pneumococcal Vaccination: No Review Of Systems Constitutional: Negative for: Fever, Chills Cardiovascular: Negative for: Chest Pain Respiratory: Negative for: Shortness of Breath Gastrointestinal: Negative for: Nausea, Vomiting, Abdominal Pain, Diarrhea Skin: Negative for: Rash Neurological: Negative for: Weakness, Numbness Psych: Positive for: Depression, Suicidal ideation. Negative for: Withdrawal Physical Exam - Physical Exam Appears: Non-toxic, No Acute Distress Skin: Warm, Dry, Other (track humphrey noted to left AC fossa, no erythema, no crepitus, no signs of infection) Head: Normacephalic Eye(s): bilateral: Normal Inspection, PERRL, EOMI Oral Mucosa: Moist Neck: Trachea Midline, Supple, Other (No meningeal signs- negative kernig's and brudzinskis) Chest: Symmetrical Cardiovascular: Rhythm Regular, No Friction Rub Respiratory: No Rales, No Rhonchi, No Wheezing Gastrointestinal/Abdominal: Soft, No Tenderness, No Distention Extremity: Bilateral: Normal Color And Temperature Pulses: Left Dorsalis Pedis: Normal, Right Dorsalis Pedis: Normal Neurological/Psych: Oriented x3 Gait: Steady ED Course And Treatment - Laboratory Results Result Diagrams: 07/05/18 12:53 07/05/18 12:53 O2 Sat by Pulse Oximetry: 99 (RA) Pulse Ox Interpretation: Normal Medical Decision Making Medical Decision Makin yr old M p/w detox and SI. No meningeal signs, normal neuro exam, well appearing in NAD. No indication for ingestion or infection at site of injection. No sites of trauma or falls. Impression: Suicidal Ideation vs Detox request Plan: Labs ordered for medical clearance. wallboard worker will eval patient. 1509 +UTI, no CVAT No penile pain or testicular pain per pt. No rashes or ulcers. No high risk sexual activity or hx of STDS. to RX w/ cipro otherwise, pt is medically clear for admission 1545 Appreciate consult w/ Crisis: To admit to Dr. Soria service for MDD. Pt in NAD, agreeable to plan. Disposition - Disposition Disposition Time: 15:45 Condition: GOOD Forms: [facility] (Guinean) - Clinical Impression Clinical Impression: MDD (major depressive disorder) - Scribe Statement The provider has reviewed the documentation as recorded by the Chinedu Cruz Provider Attestation: All medical record entries made by the Leonardiblincoln were at my direction and personally dictated by me. I have reviewed the chart and agree that the record accurately reflects my personal performance of the history, physical exam, medical decision making, and the department course for this patient. I have also personally directed, reviewed, and agree with the discharge instructions and disposition.
[2018-07-05 12:57] LABS: BASO % 0.7 % (0.0-2.0); EOS # 0.3 K/uL (0.0-0.7); EOS % 4.7 % (0.0-4.0); LYMPH # 2.7 K/uL (1.0-4.3); LYMPH % 44.8 % (20.0-40.0); MEAN CELL VOLUME 87.7 fL (80.0-94.0); MEAN CORPUSCULAR HEMOGLOBIN 28.2 pg (27.0-31.0); MEAN CORPUSCULAR HGB CONC 32.1 g/dL (33.0-37.0); MEAN PLATELET VOLUME 9.6 fL (7.2-11.7); MONO # 0.6 K/uL (0.0-0.8); NEUT # 2.4 K/uL (1.8-7.0); NEUT % 39.8 % (50.0-75.0); NRBC % 0.1 % (0.0-2.0); RBC 4.96 Mil/uL (4.40-5.90); RED CELL DISTRIBUTION WIDTH 12.6 % (11.5-14.5); WHITE BLOOD COUNT 5.9 K/uL (4.8-10.8)
[2018-07-05 13:10] LABS: ALB/GLOB RATIO 1.4 (1.0-2.1); ALBUMIN 4.9 g/dL (3.5-5.0); ALT/SGPT 57 U/L (21-72); AST/SGOT 81 U/L (17-59); BLOOD UREA NITROGEN 17 mg/dL (9-20); CALCIUM 9.5 mg/dl (8.6-10.4); GFR NON-AFRICAN AMERICAN > 60
[2018-07-05 13:11] LABS: ACETAMINOPHEN < 10.0 ug/mL (10.0-30.0); SALICYLATE < 1.0 mg/dL 1
[2018-07-05 14:49] LABS: SQUAMOUS EPITHIAL 1 /hpf (0-5); URINE BACTERIA RARE (<OCC); URINE BILIRUBIN NEGATIVE (NEGATIVE); URINE BLOOD NEGATIVE (NEGATIVE); URINE CLARITY Hazy (Clear); URINE COLOR Amber (YELLOW); URINE GLUCOSE (UA) NORMAL (Normal); URINE LEUKOCYTE ESTERASE NEG Leu/uL (Negative); URINE PROTEIN 1+ mg/dL (NEGATIVE)
[2018-07-05 14:57] LABS: BARBITURATES, UR NEGATIVE (NEGATIVE); PHENCYCLIDINE, UR NEGATIVE (NEGATIVE)
[2018-07-05 15:04] LABS: BENZODIAZEPINES, UR POSITIVE (NEGATIVE); OPIATES, UR POSITIVE (NEGATIVE)
--- NOTE | 2018-07-05 17:18 | PCM.BM ---
<TiaraosoKhushboo - Last Filed: 07/05/18 17:16> Treatment Plan Problems - Problems identified on initial assessmt Ineffective Coping Date Initiated: 07/05/18 Time Initiated: 17:17 Assessment reference: NA Status: Active Anxiety Date Initiated: 07/05/18 Time Initiated: 17:18 Assessment reference: NA Status: Active Treatment assets and liabiliti Patient Assests: cooperative, ADL independent, negotiates basic needs, cognitively intact Patient Liabilities: live alone, physical pain, financial problems, poor support system, substance abuse - Milieu Protocol Maintain good personal hygiene: daily Encourage regular showers, daily Remind patient to perform daily oral care, daily Assist patient to perform ADL's Maintain personal safety: every shift Educate patient to report safety concerns to staff, every shift Monitor environment for contraband/sharps Medication safety: Monitor for expected outcome, potential side effects: every shift, Assess barriers to learning: every shift, Assess readiness for medication education: every shift <Sara Phillips - Last Filed: 07/07/18 13:58> Family Contact Family involvement: Patient does not wish Family/SO involvement Family contact: Patient declines to allow family contact at present - Goals for Treatment Patient goals for treatment: "I want to go to an outpatient program." Discharge/Continuing Care - Education Needs Education Needs: Patient Medication, Patient Diagnosis/Disease Process, Patient Coping Skills, Patient Placement options, Patient Community resources - Discharge Discharge Criteria: Free of Suicidal thoughts, Normal sleep pattern, Ability to care for self, No longer exhibiting s/s of withdrawal, Reduction of target symptoms Discharge to:: Home, With Family - Treatment Team Participation Discussed with Family/SO: No Was Patient/Family/SO present at Treatment Team Meeting: Yes
[2018-07-05] MEDS ORDERED: Aluminum Hydroxide/Magnesium Hydroxide Susp (30 mL) PO PRN (18:35)
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
[2018-07-06] MEDS ORDERED: Benzocaine/Menthol (Cepacol) Lozenge PO PRN (10:00)
--- NOTE | 2018-07-07 09:25 | PCM.PYCHPN ---
Psychiatric Progress Note - Psychiatric Progress Note Patient seen today, length of contact: 15 min Patient Chief Complaint: I was feeling depressed or suicidal.' Problems Identified/Issues Discussed: Patient seen and evaluated, chart reviewed and discussed with the nurse. Pt reports depressed mood, and reports feelings of hopelessness and helplessness. He remained isolated and withdrawn, and confined to his room. Patient reports of withdrawal symptoms including abdominal cramps, anxiety, headaches and sweating. Patient is compliant with medications and denies any side effects. Symptoms are improving but pt needs more time to stabilize. Support and psychoeducation given. Medication Change: Yes Medical Record Reviewed: Yes Mental Status Examination - Cognitive Function Orientation: Person, Place, Situation, Time Memory: Intact Attention: WNL Concentration: Poor Association: WNL Fund of Knowledge: Poor - Mood Mood: Depressed, Anxious - Affect Affect: Constricted, Depressed - Speech Speech: Soft - Formal Thought Process Formal Thought Process: No Impairment - Suicidal Ideation Suicidal Ideation: No - Homicidal Ideation Homicidal Ideation: No Goal/Treatment Plan - Goal/Treatment Plan Need for Continued Stay: Remain at risks for inpatient hospitalization Progress Toward Problem(s) and Goals/Treatment Plan: Major depressive disorder recurrent severe without psychotic features Opioid use disorder severe Opioid withdrawal Cocaine use disorder severe -CBT -Psychoeducation -Supportive therapy and group therapy -Methadone taper for heroin withdrawal -Withdrawal medication including Bentyl/clonidine/Imodium/Zofran -Seroquel for insomnia -Paxil for depression -Hydroxyzine of anxiety
[2018-07-07] MEDS ORDERED: Pneumococcal 23-Valent Vaccine SC ONE (10:00)
[2018-07-07] MEDS ORDERED: Influenza Vaccine 60 mcg/0.5 mL SYR (4YR UP) IM ONE (10:00)
[2018-07-13 08:40] VITALS: O2SAT 98
--- NOTE | 2018-07-13 10:14 | PCM.PYCHPN ---
Psychiatric Progress Note - Psychiatric Progress Note Patient seen today, length of contact: 15 min Patient Chief Complaint: I m feeling depressed.' Problems Identified/Issues Discussed: Patient seen and evaluated, chart reviewed and discussed with the nurse. Pt reports depressed mood, and reports feelings of hopelessness and helplessness. He remained isolated and withdrawn, and confined to his room. Patient reports of withdrawal symptoms including abdominal cramps, anxiety, headaches and sweating. Patient is compliant with medications and denies any side effects. Symptoms are improving but pt needs more time to stabilize. Support and psychoeducation given. Medication Change: Yes Medical Record Reviewed: Yes Mental Status Examination - Cognitive Function Orientation: Person, Place, Situation, Time Memory: Intact Attention: WNL Concentration: Poor Association: WNL Fund of Knowledge: Poor - Mood Mood: Depressed, Anxious - Affect Affect: Constricted, Depressed - Speech Speech: Soft - Formal Thought Process Formal Thought Process: No Impairment - Suicidal Ideation Suicidal Ideation: No - Homicidal Ideation Homicidal Ideation: No Goal/Treatment Plan - Goal/Treatment Plan Need for Continued Stay: Remain at risks for inpatient hospitalization Progress Toward Problem(s) and Goals/Treatment Plan: Major depressive disorder recurrent severe without psychotic features Opioid use disorder severe Opioid withdrawal Cocaine use disorder severe -CBT -Psychoeducation -Supportive therapy and group therapy -Methadone taper for heroin withdrawal -Withdrawal medication including Bentyl/clonidine/Imodium/Zofran -Seroquel for insomnia -Paxil for depression -Hydroxyzine of anxiety
--- NOTE | 2018-07-13 10:15 | PCM.PYCHPN ---
Psychiatric Progress Note - Psychiatric Progress Note Patient seen today, length of contact: 15 min Patient Chief Complaint: I m still feeling down.' Problems Identified/Issues Discussed: Patient seen and evaluated, chart reviewed and discussed with the nurse. As per staff, patient remained isolative and withdrawn and confined to his room. Pt reports depressed mood, and reports feelings of hopelessness and helplessness. Patient reports of withdrawal symptoms including abdominal cramps, anxiety, headaches and sweating. Patient is compliant with medications and denies any side effects. Symptoms are improving but pt needs more time to stabilize. Support and psychoeducation given. Medication Change: Yes Medical Record Reviewed: Yes Mental Status Examination - Cognitive Function Orientation: Person, Place, Situation, Time Memory: Intact Attention: WNL Concentration: Poor Association: WNL Fund of Knowledge: Poor - Mood Mood: Depressed, Anxious - Affect Affect: Constricted, Depressed - Speech Speech: Soft - Formal Thought Process Formal Thought Process: No Impairment - Suicidal Ideation Suicidal Ideation: No - Homicidal Ideation Homicidal Ideation: No Goal/Treatment Plan - Goal/Treatment Plan Need for Continued Stay: Remain at risks for inpatient hospitalization Progress Toward Problem(s) and Goals/Treatment Plan: Major depressive disorder recurrent severe without psychotic features Opioid use disorder severe Opioid withdrawal Cocaine use disorder severe -CBT -Psychoeducation -Supportive therapy and group therapy -Methadone taper for heroin withdrawal -Withdrawal medication including Bentyl/clonidine/Imodium/Zofran -Seroquel for insomnia -Paxil for depression -Hydroxyzine of anxiety
--- NOTE | 2018-07-14 00:23 | PCM.PYCHPN ---
Psychiatric Progress Note - Psychiatric Progress Note Patient seen today, length of contact: 15 min Patient Chief Complaint: I m still feeling down.' Problems Identified/Issues Discussed: Patient seen and evaluated, chart reviewed and discussed with the nurse. As per staff, patient is improving, however he remained isolative and withdrawn. Pt reports depressed mood, but reports some improvement in the feelings of hopelessness and helplessness. Patient reports some improvement in withdrawal symptoms but reports abdominal cramps, anxiety, headaches and sweating. Patient is compliant with medications and denies any side effects. Symptoms are improving but pt needs more time to stabilize. Support and psychoeducation given. Medication Change: Yes Medical Record Reviewed: Yes Mental Status Examination - Cognitive Function Orientation: Person, Place, Situation, Time Memory: Intact Attention: WNL Concentration: WNL Association: WNL Fund of Knowledge: Poor - Mood Mood: Depressed, Anxious - Affect Affect: Constricted, Depressed - Speech Speech: Soft - Formal Thought Process Formal Thought Process: No Impairment - Suicidal Ideation Suicidal Ideation: No - Homicidal Ideation Homicidal Ideation: No Goal/Treatment Plan - Goal/Treatment Plan Need for Continued Stay: Remain at risks for inpatient hospitalization Progress Toward Problem(s) and Goals/Treatment Plan: Major depressive disorder recurrent severe without psychotic features Opioid use disorder severe Opioid withdrawal Cocaine use disorder severe -CBT -Psychoeducation -Supportive therapy and group therapy -Methadone taper for heroin withdrawal -Withdrawal medication including Bentyl/clonidine/Imodium/Zofran -Seroquel for insomnia -Paxil for depression -Hydroxyzine of anxiety
[2018-07-14 06:19] VITALS: RESP 18
--- NOTE | 2018-07-14 11:19 | PCM.BM ---
<Sara Phillips - Last Filed: 07/14/18 11:18> Treatment Plan Problems - Problems identified on initial assessmt Ineffective Coping Date Initiated: 07/05/18 Time Initiated: 17:17 Assessment reference: NA Status: Active Anxiety Date Initiated: 07/05/18 Time Initiated: 17:18 Assessment reference: NA Status: Active Treatment assets and liabiliti Patient Assests: cooperative, ADL independent, negotiates basic needs, cognitively intact Patient Liabilities: live alone, physical pain, financial problems, poor support system, substance abuse - Milieu Protocol Maintain good personal hygiene: daily Encourage regular showers, daily Remind patient to perform daily oral care, daily Assist patient to perform ADL's Maintain personal safety: every shift Educate patient to report safety concerns to staff, every shift Monitor environment for contraband/sharps Medication safety: Monitor for expected outcome, potential side effects: every shift, Assess barriers to learning: every shift, Assess readiness for medication education: every shift Milieu Narrative: Major depressive disorder recurrent severe without psychotic features Opioid use disorder severe Opioid withdrawal Cocaine use disorder severe -CBT -Psychoeducation -Supportive therapy and group therapy -Methadone taper for heroin withdrawal -Withdrawal medication including Bentyl/clonidine/Imodium/Zofran -Seroquel for insomnia -Paxil for depression -Hydroxyzine of anxiety Family Contact Family involvement: Patient does not wish Family/SO involvement Family contact: Patient declines to allow family contact at present - Goals for Treatment Patient goals for treatment: "I want to go to an outpatient program." Discharge/Continuing Care - Education Needs Education Needs: Patient Medication, Patient Diagnosis/Disease Process, Patient Coping Skills, Patient Placement options, Patient Community resources - Discharge Discharge Criteria: Free of Suicidal thoughts, Normal sleep pattern, Ability to care for self, No longer exhibiting s/s of withdrawal, Reduction of target symptoms Discharge to:: Home, With Family - Treatment Team Participation Patient/Family/SO Statement: Major depressive disorder recurrent severe without psychotic features Opioid use disorder severe Opioid withdrawal Cocaine use disorder severe -CBT -Psychoeducation -Supportive therapy and group therapy -Methadone taper for heroin withdrawal -Withdrawal medication including Bentyl/clonidine/Imodium/Zofran -Seroquel for insomnia -Paxil for depression -Hydroxyzine of anxiety Discussed with Family/SO: No Was Patient/Family/SO present at Treatment Team Meeting: Yes Treatment Plan Review - Problem Ineffective Coping Time Initiated: 17:17 Anxiety Time Initiated: 17:18 - Discharge / Continuing Care Discharge to:: Home, With Family Behavioral Health Services: Intensive Outpatient Health Needs: Follow up care/test, Medications/Rx, Alcohol/Drug treatment <Gina Khan - Last Filed: 07/14/18 11:53> Treatment Plan Review - Problem Ineffective Coping Progress toward outcomes: improved Anxiety Progress toward outcomes: improved
--- NOTE | 2018-07-15 00:22 | PCM.PYCHPN ---
Psychiatric Progress Note - Psychiatric Progress Note Patient seen today, length of contact: 15 min Patient Chief Complaint: I m still feeling down.' Problems Identified/Issues Discussed: Patient seen and evaluated, chart reviewed and discussed with the nurse. Pt reports depressed mood, but reports some improvement in the feelings of hopelessness and helplessness. Patient reports some improvement in withdrawal symptoms but reports abdominal cramps, anxiety, headaches and sweating. As per staff, patient is improving, however he remained isolative and withdrawn. Patient is compliant with medications and denies any side effects. Symptoms are improving but pt needs more time to stabilize. Support and psychoeducation given. Medication Change: Yes Medical Record Reviewed: Yes Mental Status Examination - Cognitive Function Orientation: Person, Place, Situation, Time Memory: Intact Attention: WNL Concentration: Poor Association: WNL Fund of Knowledge: Poor - Mood Mood: Depressed, Anxious - Affect Affect: Constricted, Depressed - Speech Speech: Soft - Formal Thought Process Formal Thought Process: No Impairment - Suicidal Ideation Suicidal Ideation: No - Homicidal Ideation Homicidal Ideation: No Goal/Treatment Plan - Goal/Treatment Plan Need for Continued Stay: Remain at risks for inpatient hospitalization Progress Toward Problem(s) and Goals/Treatment Plan: Major depressive disorder recurrent severe without psychotic features Opioid use disorder severe Opioid withdrawal Cocaine use disorder severe -CBT -Psychoeducation -Supportive therapy and group therapy -Methadone taper for heroin withdrawal -Withdrawal medication including Bentyl/clonidine/Imodium/Zofran -Seroquel for insomnia -Paxil for depression -Hydroxyzine of anxiety
--- NOTE | 2018-07-15 23:18 | PCM.PYCHPN ---
Psychiatric Progress Note - Psychiatric Progress Note Patient seen today, length of contact: 18 min Patient Chief Complaint: "I still have racing thoughts at night" Problems Identified/Issues Discussed: Patient was seen and chart was reviewed. Case was discussed with treatment team. Issues related to the illness and treatments were discussed with the patient, and issues related to illness and treatments were discussed with the patient and staff. Patient reported compliance with treatment and no adverse effects from the medications were reported. Patient is tolerating treatment well at this time. Patient reports mood and sleep as improved, affect is congruent with mood. Aftercare was discussed with patient and he verbalized understanding. Patient denies any delusions, auditory/visual hallucinations, or perceptual disturbances. Patient also denies any suicidal or homicidal ideation/plan/intent at this time. Medication Change: No Medical Record Reviewed: Yes Mental Status Examination - Cognitive Function Orientation: Person, Place, Situation, Time Memory: Intact Attention: WNL Concentration: Poor Association: WNL Fund of Knowledge: Poor - Mood Mood: Depressed, Anxious - Affect Affect: Constricted, Depressed - Speech Speech: Soft - Formal Thought Process Formal Thought Process: No Impairment - Suicidal Ideation Suicidal Ideation: No - Homicidal Ideation Homicidal Ideation: No Goal/Treatment Plan - Goal/Treatment Plan Need for Continued Stay: Remain at risks for inpatient hospitalization Progress Toward Problem(s) and Goals/Treatment Plan: Continue medications Support and psychoeducation daily Attend groups and activities daily Individual therapy After care planning by MARBELLA and the team
[2018-07-17 06:49] VITALS: BP 97/64; PULSE 60; TEMP 98.2
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
== END 2018-07-17 10:50 | disposition home or self-care (01) | DRG 751 ==
LOC: C.ER 11:42 → C.5E 15:44
PROVIDERS: ADMIT Psychiatry & Neurology Psychiatry; ATTEND Psychiatry & Neurology Psychiatry
PROC: GZ3ZZZZ Medication Management (ICD-10-PCS; principal; 2018-07-05)
PROC: HZ81ZZZ Medication Management for Substance Abuse Treatment, Methadone Maintenance (ICD-10-PCS; 2018-07-05)
PROC: GZHZZZZ Group Psychotherapy (ICD-10-PCS; 2018-07-05)
PROC: GZ56ZZZ Individual Psychotherapy, Supportive (ICD-10-PCS; 2018-07-05)
DX: F33.2 Major depressive disorder, recurrent severe without psychotic features (principal); F11.23 Opioid dependence with withdrawal; R45.851 Suicidal ideations; F14.20 Cocaine dependence, uncomplicated; F43.10 Post-traumatic stress disorder, unspecified; B19.20 Unspecified viral hepatitis C without hepatic coma; F31.9 Bipolar disorder, unspecified; F60.9 Personality disorder, unspecified; N18.9 Chronic kidney disease, unspecified; F17.210 Nicotine dependence, cigarettes, uncomplicated; G47.00 Insomnia, unspecified; Z81.4 Family history of other substance abuse and dependence; Z87.11 Personal history of peptic ulcer disease; Z87.442 Personal history of urinary calculi